=== PATIENT | male | born 1955 | race Caucasian/White ===

== ENCOUNTER → 2016-10-27 | Outpatient (CLI) | payer BC ==
--- NOTE | 2016-10-27 19:49 | Diagnostic Imaging Report ---
INDICATION: Nephrolithiasis with right UVJ stone. TECHNIQUE: Single supine view of the abdomen at 10:38 AM CORRELATION STUDY: None FINDINGS: Gas within the colon and small bowel is present. Mild severity fecal retention. There are multiple calcifications within the pelvis. Large number of these likely favor phleboliths. However, small distal ureteral stones would be difficult to exclude. Osseous structures demonstrate compression deformity at L1 level, age-indeterminate. IMPRESSION: 1. Multiple calcifications within the pelvis. Large number of these likely favoring phleboliths. Distal ureteral stones, some of these would be difficult to exclude. Dictated by: Dictated on workstation # [id number]
== END ==
LOC: RAD 09:19
PROVIDERS: ATTEND Urology
DX: N20.1 Calculus of ureter (principal)
CPT/HCPCS: 74000

== ENCOUNTER 2016-11-02 05:33 | Outpatient (CLI) | payer BC ==
[~2016-11-02] VITALS: Ht 177.8 cm; Wt 90.7 kg
== END 2016-11-02 14:01 ==
LOC: PREOP 05:33
PROVIDERS: ATTEND Urology
DX: Z01.818 Encounter for other preprocedural examination (principal); N20.1 Calculus of ureter

== ENCOUNTER 2016-11-07 06:14 | Day surgery (SDC) | payer BC ==
[~2016-11-07] VITALS: Ht 177.8 cm; Wt 90.7 kg
[2016-11-07 06:32] VITALS: BP 149/96
[2016-11-07] MEDS ORDERED: NS (IVPB) 50 ML ONE (06:33)
[2016-11-07] MEDS ORDERED: cefTRIAXone 1 GM (ROCEPHIN) VIAL ONE (06:33)
[2016-11-07] MEDS ORDERED: LACTATED RINGERS 1,000 ML IV PRN (06:51)
--- NOTE | 2016-11-07 07:14 | Progress Note-Pre Operative ---
Pre-Operative Progress Note H&P Reviewed The H&P was reviewed, patient examined and no changes noted. Date H&P Reviewed: November 07, 2016 Time H&P Reviewed: 07:14 Pre-Operative Diagnosis: RT DISTAL URETERAL STONE KWADWO GE MD November 07, 2016 7:14 am
[2016-11-07] MEDS ORDERED: cefTRIAXone 1 GM/NS 50 ML IVPB IV ONE ×2 (07:15)
--- NOTE | 2016-11-07 08:03 | Diagnostic Imaging Report ---
INDICATION: Right nephrolithiasis KUB 7:07 AM There is stool in the colon which obscures the upper pole of the right kidney. There are no obvious calculi. There are several phleboliths in the pelvis. The bowel gas pattern is normal. IMPRESSION: No acute abnormalities in the abdomen Dictated by: Dictated on workstation # [id number]
[2016-11-07] MEDS ORDERED: fentaNYL INJECTION 100 MCG/2 ML AMP ONE (08:17)
[2016-11-07] MEDS ORDERED: LIDOCAINE PF 2% 5 ML (XYLOCAINE) VIAL ONE (08:17)
[2016-11-07] MEDS ORDERED: proPOfol 200 MG/20 ML (DIPRIVAN) VIAL IV ONE (08:17)
[2016-11-07] MEDS ORDERED: LACTATED RINGERS 1,000 ML IV ONE (08:17)
[2016-11-07] MEDS ORDERED: ONDANSETRON 4 MG/2 ML (SDV) Z0FRAN ONE (08:17)
[2016-11-07] MEDS ORDERED: SEVOFLURANE (ULTANE) 15 ML INHAL SOLN ONE ×2 (08:21→08:50)
[2016-11-07] MEDS ORDERED: MIDAZOLAM 2 MG/2 ML (VERSED) VIAL ONE (08:24)
--- NOTE | 2016-11-07 09:01 | Progress Note-Post Operative ---
Post-Operative Progess Note Surgeon (s)/Front Desk Team Member (s) Surgeon KWADWO GE MD Front Desk Team Member: N/A Pre-Operative Diagnosis RT DISTAL URETERAL STONE Post-Operative Diagnosis SAME AND MEATAL STENOSIS Procedure & Operative Findings Date of Procedure 11/07/16 Procedure Performed/Findings CYSTO, RT URETEROSCOPY WITH STONE LITHOTRIPSY AND RETROGRADE UROGRAM Anesthesia Type GENERAL Estimated Blood Loss Estimated blood loss (mL): NONE Specimens/Packing Specimens Removed NONE KWADWO GE MD November 07, 2016 9:01 am
--- NOTE | 2016-11-07 09:02 | Discharge Inst-Urology ---
Discharge Inst-Urology Discharge Medications New, Converted, or Re-newed RX: RX on Chart Patient Instructions/Follow Up Plan Please make appointment to been seen in office in 4 weeks. Increase oral fluids for 48 hours and then as needed. Diet and Activity as tolerated. If questions or concerns contact your physician Or seek help at emergency department. KWADWO GE MD November 07, 2016 9:02 am
[2016-11-07] MEDS ORDERED: LEVO500T2 PO (09:20)
[2016-11-07] MEDS ORDERED: PHEN-640 PO (09:20)
--- NOTE | 2016-11-07 09:30 | OPERATIVE REPORT ---
DATE OF SERVICE: 11/07/2016 PREOPERATIVE DIAGNOSIS: Right distal urethral stone. POSTOPERATIVE DIAGNOSIS: Right distal urethral stone and meatal stricture. OPERATIONS PERFORMED: Cystoscopy, right ureteroscopy with stone lithotripsy and right retrograde ureterogram. SURGEON: Joe Ge MD ANESTHESIA: General. COMPLICATIONS: None. PROCEDURE IN DETAIL: Under satisfactory general anesthesia, the patient in the lithotomy position, genitalia were prepped and draped in usual sterile fashion. A 23-Bahamian cystoscope was introduced under direct vision. There was a meatal stricture which responded to the scope with minimal bleeding. Rest of the urethra was normal, no stricture. Prostate revealed mild enlargement with mild bladder neck obstruction and trabeculations. Inspection of the bladder revealed no abnormality except sluggish efflux on the right side. Using the fore oblique lens, I dilated the right ureteral orifice and intramural portion to accommodate a 6.9-Bahamian semi-rigid ureteroscope. I visualized the stone and broke it up with lithoclast in very small fragments, most of them fell into the bladder. I went ahead and continued moving the ureteroscope proximally to make sure there were no more stones. I injected contrast. There was no filling defect and complete emptying of the system. I removed the ureteroscope and inserted a cystoscope to empty the bladder. The patient tolerated the procedure well and was sent to recovery room in stable condition. Job ID: [id number] DocumentID: [id number] Dictated Date: 11/07/2016 09:04:29 Director Internal Control Date: 11/07/2016 09:29:36 Dictated By: JOE GE MD [facility]
[2016-11-07 10:00] VITALS: BP 126/83
[2016-11-07 10:30] VITALS: BP 114/79
[2016-11-07 11:00] VITALS: BP 116/87
[2016-11-07 11:15] VITALS: BP 116/87
== END 2016-11-07 11:15 | disposition home or self-care (01) ==
LOC: SDC 06:14
PROVIDERS: ATTEND Urology
DX: N20.1 Calculus of ureter (principal); N35.9 Urethral stricture, unspecified
CPT/HCPCS: 74000; 87081